=== PATIENT | male | born 1990 | race Caucasian/White ===

== ENCOUNTER 2024-05-09 11:45 | Emergency (ER) | payer OTHER, SELFPAY ==
[2024-05-09 11:56] VITALS: BP 107/74; PULSE 106; TEMP 37.1; O2SAT 91; BMI 19.5
--- NOTE | 2024-05-09 12:08 | CRLHL7_ITS ---
For Patients: As a result of the 21st Century Cures Act, medical imaging exams and procedure reports are released immediately into your electronic medical record. You may view this report before your referring provider. If you have questions, please contact your health care provider. INDICATION: Right flank pain TECHNIQUE: CT abdomen and pelvis without contrast. COMPARISON: 01/21/[address] FINDINGS: Motion artifact on the exam. A portion of the mid abdomen was reimaged. Motion remains in the upper abdomen and pelvis images. Examination has reduced sensitivity due to artifact and lack of IV contrast. Lower chest: Tiny right pleural effusion. Micronodular infiltrates in both posterior lungs. Findings compatible with pneumonia, possibly aspiration. Similar pattern was present in 2019. Liver: Grossly normal. Gallbladder and bile ducts: Not visible. Pancreas: Unremarkable. No mass or inflammation. Spleen: Grossly normal. Adrenal glands: Normal in size. No nodules. Kidneys: Tiny nonobstructing right kidney stone. No hydronephrosis. GI tract: Gaseous distention of the colon. Vasculature: Abdominal aorta is normal caliber. Lymph nodes: No visible adenopathy. Abdominal wall/Omentum/Peritoneum: No free air or free fluid identified. Stimulator pack in the anterior right abdominal wall with leads heading cephalad. Pelvis: Unremarkable. No pelvic masses. Bones: Unremarkable for age. IMPRESSION: 1. Exam limited by motion and lack of IV contrast. 2. Micronodular infiltrates in the lower lobes and trace right pleural effusion compatible with pneumonia. Consider aspiration. 3. Nonobstructing right nephrolithiasis. Please note that all CT scans at this facility use dose modulation, iterative reconstruction, and/or weight-based dosing when appropriate to reduce radiation dose to as low as reasonably achievable. Dictated by Steve Morales MD @ 05/09/2024 1:06:55 PM (Electronically Signed)
--- NOTE | 2024-05-09 12:10 | ED.GENADULT ---
HPI - General Adult General Chief complaint: Flank Pain Stated complaint: shooting back pain, kidney infection Time Seen by Provider: 05/09/24 11:47 History of Present Illness HPI narrative: Patient is a 34-year-old gentleman with cerebral palsy and seizure disorder who presents with right-sided flank pain. Pain began this morning. He has dark urine. Wears a condom catheter. He articulates through his parents and a computer. He has had no fevers no chills no nausea no vomiting no weakness. He is in a wheelchair. He states the pain extends from the right flank in to the low back. No history of any kidney stones. No history of any urinary pain. Related Data Home Medications ?Medication ?Instructions ?Recorded ?Confirmed acetaminophen 650 mg rectal mg WI 05/09/24 suppository bisacodyl 10 mg rectal suppository 0 mg WI 05/09/24 diazepam 12.5 mg-15 mg-17.5 mg-20 12.5 mg WI 05/09/24 mg rectal kit ergocalciferol (vitamin D2) 200 PO 05/09/24 mcg/mL (8,000 unit/mL) oral drops (Calcidol) glycopyrrolate 1 mg tablet mg PO 05/09/24 lamotrigine 100 mg disintegrating mg PO 05/09/24 tablet nystatin 100,000 unit/gram topical topical DAILY 05/09/24 powder (Nystop) Previous Rx's ?Medication ?Instructions ?Recorded sulfamethoxazole 200 10 ml PO QID #200 mL 05/09/24 mg-trimethoprim 40 mg/5 mL oral suspension sulfamethoxazole 200 10 ml PO QID 5 days #200 mL 05/09/24 mg-trimethoprim 40 mg/5 mL oral suspension tamsulosin 0.4 mg capsule (Flomax) 0.4 mg PO DAILY #10 caps 05/09/24 tamsulosin 0.4 mg capsule (Flomax) 0.4 mg PO DAILY #10 caps 05/09/24 Allergies Allergy/AdvReac Type Severity Reaction Status Date / Time No Known Drug Allergies Allergy Verified 05/09/24 11:54 Review of Systems Status of ROS: Reports: 10 or more systems reviewed and unremarkable except as noted in History and below [facility] Medical History Seizure disorder ?G40.909 - Epilepsy, unspecified, not intractable, without status epilepticus (ICD-10) Cerebral palsy ?G80.9 - Cerebral palsy, unspecified (ICD-10) Exam Narrative: Exam Narrative: EXAM GENERAL: Patient appears comfortable and well. Seated in wheelchair. EYES: No scleral icterus. LYMPH: No supraclavicular or cervical lymphadenopathy. SKIN: Visible skin seen during exam normal or with benign process only. EXT: No dependent lower extremity pedal edema. HEART: Regular rate and rhythm with no murmurs, rubs, or gallops. LUNGS: Clear to auscultation bilaterally with no crackles or wheezes. ABD: Soft, non tender, non distended. PSYCH: Good eye contact, speech is not pressured. Const: Vital Signs, click to edit/add: Vital Signs - 24 hr 05/09/24 11:56 Temperature 98.8 F Pulse Rate [Pulse Oximeter] 106 H Blood Pressure [Ri ght Upper Arm] 107/74 Pulse Oximetry 91 Oxygen Delivery Me thod Room Air Course Course ED Course: CBC basic metabolic panel UA CT abdomen pelvis pending. Vital Signs Vital signs: Initial Vital Signs Temperature 98.8 F 05/09/24 11:56 Temperature Source Temporal Artery Scan 05/09/24 11:56 Pulse Rate 106 H 05/09/24 11:56 Blood Pressure 107/74 05/09/24 11:56 Blood Pressure Mean 85 05/09/24 11:56 Blood Pressure Position Sitting 05/09/24 11:56 Pulse Oximetry 91 05/09/24 11:56 Oxygen Delivery Method Room Air 05/09/24 11:56 Vital Signs Temperature 98.8 F 05/09/24 11:56 Pulse Rate 106 H 05/09/24 11:56 Blood Pressure 107/74 05/09/24 11:56 Pulse Oximetry 91 05/09/24 11:56 Oxygen Delivery Method Room Air 05/09/24 11:56 Temperature 98.8 F 05/09/24 11:56 Pulse Rate 106 H 05/09/24 11:56 Blood Pressure 107/74 05/09/24 11:56 Pulse Oximetry 91 05/09/24 11:56 Oxygen Delivery Method Room Air 05/09/24 11:56 Medical Decision Making MDM Narrative Medical decision making narrative: Patient is a 34-year-old gentleman with cerebral palsy who presents with right flank pain. He wears a condom catheter. White blood cell count and laboratory studies are reassuring but he does have evidence of UTI. He also has right-sided kidney stone which currently is not obstructing. I did send the urine for culture and recommended plenty of rest plenty fluids Bactrim for the next 5 days see is allergic to quinolones. I also place him on Flomax and recommended primary care follow-up in 5 days. Lab Data Labs: Lab Results 05/09/24 05/09/24 Range/Units 12:37 12:45 WBC 8.33 (4.50-11.00) K/uL RBC 5.05 (4.30-5.90) m/uL Hgb 15.1 (13.5-17.5) gm/dL Hct 45.2 (37.0-53.0) % MCV 90 (80-100) fL MCH 30 (26-34) pg MCHC 33 (32-36) gm/dL RDW Coeff of Bobo 12.0 (11.5-15.5) % Plt Count 264 (140-440) K/uL Neut % (Auto) 72.7 H (42.0-72.0) % Lymph % (Auto) 15.5 L (20-44) % [place] % (Auto) 7.0 (0.0-11.0) % Eos % (Auto) 4.1 (0.0-7.0) % Baso % (Auto) 0.7 (0.0-3.0) % Neut # (Auto) 6.10 (1.7-7.0) K/uL Lymph # (Auto) 1.30 (0.90-2.90) K/uL [place] # (Auto) 0.60 (0.00-0.90) K/UL Eos # (Auto) 0.34 (0.00-0.50) K/uL Baso # (Auto) 0.06 (0.00-0.30) K/uL Abs Immat Gran (auto) 0.00 (0.00-0.30) K/uL Imm/Tot Granulo (auto) 0.0 % Sodium 137 (135-149) mmol/L Potassium 4.6 (3.6-5.1) mmol/L Chloride 102 (96-114) mmol/L Carbon Dioxide 26 (20-32) mmol/L Anion Gap 9 (7-15) mEq/L BUN 12 (5-24) mg/dL Creatinine 0.7 (0.5-1.5) mg/dL Estimated Creat Clear 106.92 Estimated GFR 126 ml/min Glucose 97 (60-115) mg/dL Calcium 9.7 (8.4-10.6) mg/dL Urine Color Yellow (Yellow) Urine Appearance Cloudy A (Clear) Urine pH 7.0 (5.0-8.5) Ur Specific [place] 1.020 (1.000-1.030) Urine Protein Negative (Negative) Urine Glucose (UA) Negative (Negative) Urine Ketones Negative (Negative) Urine Blood Negative (Negative) Urine Nitrite Positive A (Negative) Urine Bilirubin Negative (Negative) Urine Urobilinogen 0.2 (0.2-1.0) Ur Leukocyte Esterase 1+ A (Negative) Urine RBC 0-2 (0-2) Urine WBC 5-10 A (0-5) Urine WBC Clumps Few A (None) Ur Squamous Epith Cells Few (None-Few) Amorphous Sediment Many A (None) Urine Bacteria Many A (None) Discharge Plan Discharge Clinical Impression: Acute UTI, Kidney stone Patient Disposition: Home w/ Parent or Adult Condition: Stable Instructions: Kidney Stones (ED), Urinary Tract Infection in Men (ED) Additional Instructions: Flomax as directed Bactrim as directed Increase fluids Continue current medications Follow-up with your doctor this week. Activity Level: No Restrictions Discharge Diet: Regular Prescriptions: New sulfamethoxazole-trimethoprim 200-40 mg/5 mL suspension 10 ml PO QID Qty: 200 0RF tamsulosin [Flomax] 0.4 mg capsule 0.4 mg PO DAILY Qty: 10 3RF sulfamethoxazole-trimethoprim 200-40 mg/5 mL suspension 10 ml PO QID 5 Days Qty: 200 0RF tamsulosin [Flomax] 0.4 mg capsule 0.4 mg PO DAILY Qty: 10 0RF No Action glycopyrrolate 1 mg tablet PO acetaminophen 650 mg suppository WI bisacodyl 10 mg suppository 0 mg WI nystatin [Nystop] 100,000 unit/gram powder topical DAILY ergocalciferol (vitamin D2) [Calcidol] 200 mcg/mL (8,000 unit/mL) drops PO diazepam 12.5-15-17.5-20 mg kit 12.5 mg WI lamotrigine 100 mg tablet,disintegrating PO Follow Up/Referrals: Oral Alexandra MD [Primary Care Provider] - Stand Alone Forms: [employer] Info Instructions
[2024-05-09 12:50] LABS: Appearance Urine Cloudy (Clear); Bilirubin Urine Negative (Negative); Blood Urine Negative (Negative); Color Urine Yellow (Yellow); Glucose Urine Negative (Negative); Ketones Urine Negative (Negative); Leukocyte Esterase Urine 1+ (Negative); Nitrite Urine Positive (Negative); Protein Urine Negative (Negative); Urobilinogen Urine 0.2 (0.2-1.0)
[2024-05-09 12:56] LABS: Basophils Absolute Auto 0.06 K/uL (0.00-0.30); Basophils Percent Auto 0.7 % (0.0-3.0); Eosinophils Absolute Auto 0.34 K/uL (0.00-0.50); Eosinophils Percent Auto 4.1 % (0.0-7.0); Hematocrit 45.2 % (37.0-53.0); Hemoglobin* 15.1 gm/dL (13.5-17.5); Lymphocytes Percent Auto 15.5 % (20-44); Mean Corpuscular HGB Conc 33 gm/dL (32-36); Mean Corpuscular Hemoglobin 30 pg (26-34); Mean Corpuscular Volume 90 fL (80-100); Neutrophils Percent Auto 72.7 % (42.0-72.0); Platelet Count* 264 K/uL (140-440); Red Blood Count 5.05 m/uL (4.30-5.90); Slide Review Reflex No; White Blood Count* 8.33 K/uL (4.50-11.00)
[2024-05-09 12:58] LABS: Chloride* 102 mmol/L (96-114); Sodium* 137 mmol/L (135-149)
[2024-05-09 12:59] LABS: Potassium* 4.6 mmol/L (3.6-5.1)
[2024-05-09 13:01] LABS: Creatinine* 0.7 mg/dL (0.5-1.5); Est. Creatinine Clearance* 106.92; Estimated Glomerular Filt Rate 126 ml/min
[2024-05-09 13:02] LABS: Anion Gap 9 mEq/L (7-15); Blood Urea Nitrogen* 12 mg/dL (5-24); Calcium* 9.7 mg/dL (8.4-10.6); Carbon Dioxide* 26 mmol/L (20-32); Glucose* 97 mg/dL (60-115)
[2024-05-09 13:19] LABS: Amorphous Sediment Urine Many; Bacteria Urine Many; RBC Urine 0-2 (0-2); Squamous Epithelial Cell Urine Few (None-Few); WBC Clumps Urine Few
== END 2024-05-09 13:37 | disposition home or self-care (01) ==
PROVIDERS: Emergency Provider Internal Medicine; PCP Family Medicine
DX: N39.0 Urinary tract infection, site not specified (principal); N20.0 Calculus of kidney
CPT/HCPCS: 36415; 74176; 80048; 81001; 81003; 85025; 87086; 87186; 99283; 99284

== ENCOUNTER 2024-05-18 00:19 | Emergency (ER) | payer OTHER, SELFPAY ==
--- OUTSIDE RECORDS SUMMARY | 2024-05-18 00:21 | XMS_ITS | Clinical Summary ---
Author Organization [facility] Address [address] [place] [address] Care Team Providers Care Bay Stocker Name Role Phone Oral Alexandra Primary Care Physician [phone] Encounter 05/03/22 - 05/03/[address] [address] Discharge Disposition: Home or Self Care Attending Physician: Alexander Andre MD Admitting Physician: Alexander Andre MD Referring Physician: Alexander Andre MD Allergies, Adverse Reactions, Alerts No Known Allergies Discharge Medications albuterol (albuterol 2.5 mg/ 3 mL (0.083%) inhalation solution) Status: Ordered Start Date: 11/24/18 3 Milliliters Nebulized Inhalation every 4 hours as needed as needed for wheezing. bisacodyl (bisacodyl 10 mg r ectal suppository) Status: Ordered Start Date: 11/22/16 1 supp Rectal 6 days/week. diazePAM (Diastat AcuDial 20 mg rectal kit) Status: Ordered Start Date: 11/22/16 12.5 Milligrams Per rectum As Directed as needed as needed for seizure activity> 3 min. docusate (Enemeez Mini 283 m g rectal enema) Status: Ordered Start Date: 11/22/16 1 Each Per rectum Sat/Sat. Given when bisacodyl is not given ,use intermittently in place of the bisacodyl suppository prn. ergocalciferol (ergocalcifer ol 8000 intl units/mL oral solution) Status: Ordered Start Date: 11/22/16 4 mL Oral twice a month on Saturday. glycopyrrolate (glycopyrrola te 1 mg oral tablet) Status: Ordered Start Date: 11/22/16 1/2 tab Oral every day. lamoTRIgine (LaMICtal ODT 10 0 mg oral tablet, disintegrating) Status: Ordered Start Date: 11/22/16 3 tabs (300mg) AM and 2.5 tabs (250mg) HS. polyethylene glycol 3350 (po lyethylene glycol 3350 oral powder for reconstitution) Status: Ordered Start Date: 11/22/16 17 Gram Oral every day as needed constipation. dissolve in water before taking. Problem List Condition Confirmation Course Effective Dates Status H ealth Status Informant At high risk for falls 1 Confirmed Active Mixed cerebral palsy Confirmed Active Constipation Confirmed Active patient pureed diet only tolerated thin liquids Confirmed Active patient Communication device Confirmed Active p atient Nonverbal Confirmed Active patient Cognitive age appropriate Confirmed Active patient IMPLANTED DEEP BRAIN STIMULATOR Confirmed Active patient Seizure disorder 2 Confirmed Active pat ient condom cath in place Confirmed Active p atient Warts on hand Confirmed Active patient Wheelchair dependence power wheelchair Confirmed Active patient 1Added via Discern Expert [email or web address]_PROBLEM Rule. 2MEG. DBS. Procedures Procedure Date Related Diagnosis Body Site Status Dental 1 11/24/18 Completed 1auto-populated from documented surgical case Immunizations Given and Recorded Vaccine Date Status Refusal Reason influenza virus vaccine, inactivated 04/05/22 Give n influenza virus vaccine, inactivated 03/05/21 Kirill rded influenza virus vaccine, inactivated 03/07/20 Kirill rded influenza virus vaccine, inactivated 04/08/19 Kirill rded influenza virus vaccine, inactivated 02/10/18 Kirill rded influenza virus vaccine, inactivated 02/08/17 Kirill rded influenza virus vaccine, inactivated 06/26/16 Kirill rded influenza virus vaccine, inactivated 03/30/15 Kirill rded influenza virus vaccine, inactivated 02/12/13 Kirill rded influenza virus vaccine, inactivated 02/14/12 Kirill rded influenza virus vaccine, inactivated 02/16/10 Kirill rded influenza virus vaccine, inactivated 04/21/08 Kirill rded influenza virus vaccine, inactivated 04/15/07 Kirill rded influenza virus vaccine, inactivated 04/03/06 Kirill rded influenza virus vaccine, inactivated 03/13/04 Kirill rded influenza virus vaccine, inactivated 04/13/03 Kirill rded influenza virus vaccine, inactivated 04/29/02 Kirill rded SARS-CoV-2 mRNA (tozinameran) vaccine 04/07/21 Rec orded SARS-CoV-2 (COVID-19) Ad26 vaccine, kirill 08/06/20 Recorded pneumococcal 23-polyvalent vaccine 07/16/19 Record ed hepatitis A adult vaccine 07/16/19 Recorded hepatitis A adult vaccine 05/26/18 Recorded pneumococcal 13-valent conjugate vaccine 05/26/18 Recorded tetanus/diphth/pertuss (Tdap) adult/adol 02/21/17 Recorded tetanus-diphth toxoids (Td) adult/adol 03/30/15 Re corded tetanus-diphth toxoids (Td) adult/adol 12/22/04 Re corded varicella virus vaccine 04/15/07 Recorded measles/mumps/rubella/varicella vaccine 12/22/04 R ecorded Vital Signs Most recent to oldest [Reference Range]: 1 2 3 Temperature (Route Not Specified) [36.5-38 Deg C] 36.2 Deg C *LOW* (05/03/22 9:17 AM) 98 Deg C *HI* (05/03/22 9:17 AM) Heart Rate Monitored [50-90 bpm] 87 bpm (05/03/22 9:17 AM) 100 bpm *HI* (05/03/22 9:17 AM) 101 bpm *HI* (05/03/22 9:17 AM) Systolic Blood Pressure [100-140 mmHg] 123 mmHg (05/03/22 9:17 AM) 121 mmHg (05/03/22 9:17 AM) Diastolic Blood Pressure [60-90 mmHg] 75 mmHg (05/03/22 9:17 AM) 72 mmHg (05/03/22 9:17 AM) Respiratory Rate [10-24 br/min] 18 br/min (05/03/22 9:17 AM) SpO2 [92-100 %] 98 % (05/03/22 9:17 AM) 100 % (05/03/22 9:17 AM) 98 % (05/03/22 9:17 AM) Pain Present No actual or suspect ed pain (05/03/22 9:15 AM) Able to self report Yes (05/03/22 9:15 AM) able to use numeric rating scale No (05/03/22 9:15 AM) Social History Social History Type Response Alcohol Never used Smoking Status Never smoker entered on: 04/05/22 Sex Treatment Plan Future Appointments Appointment Date:05/29/2022 09:30:00 AM Scheduled Provider:DEMETRICE Robbins/Sherry Location:[facility] Appointment Type:OT - Virtual Video Visit Evaluation Appointment Date:12/13/2022 02:00:00 PM Scheduled Provider: Location:[facility] Appointment Type:Complex Movement Disorders - Standard Patient Care team information Personnel Name: Oral Alexandra MD Address: Address: [address]
--- OUTSIDE RECORDS SUMMARY | 2024-05-18 00:21 | XMS_ITS | Clinical Summary ---
Author Organization [facility] Address [address] [place] [address] Care Team Providers Care Light Rail Transit Operator Name Role Phone AlexandraOral Sherry Primary Care Physician Encounter 02/19/19 - 02/19/19 [facility] [address] [place] [address] Encounter Diagnosis Other cerebral palsy(Discharge Diagnosis) - 02/19/19 Presence of other specified functional implants(Discharge Diagnosis) - 02/19/19 Mixed cerebral palsy(Discharge Diagnosis) - 02/19/19 S/P deep brain stimulator placement(Discharge Diagnosis) - 02/19/19 Discharge Disposition: Home or Self Care Attending Physician: Figueroa Stevenson MD Admitting Physician: Figueroa Stevenson MD Referring Physician: Figueroa Stevenson MD Allergies, Adverse Reactions, Alerts No Known Allergies Discharge Medications albuterol (albuterol 2.5 mg/ 3 mL (0.083%) inhalation solution) 3 Milliliters Nebulized Inhalation every 4 hours as needed as needed for wheezing. bisacodyl (bisacodyl 10 mg r ectal suppository) 1 Suppositories Per rectum. every Sat/ Mon///Sat, Given in the afternoon. diazePAM (Diastat AcuDial 20 mg rectal kit) 12.5 Milligrams Per rectum As Directed as needed as needed for seizure activity> 3 min. docusate (Enemeez Mini 283 m g rectal enema) 1 Each Per rectum Sat/Sat. Given when bisacodyl is not given ,use intermittently in place of the bisacodyl suppository prn. ergocalciferol (ergocalcifer ol 8000 intl units/mL oral solution) 4 mL Oral twice a month on Saturday. glycopyrrolate (glycopyrrola te 1 mg oral tablet) 1/2 tab Oral every day. lamoTRIgine (LaMICtal ODT 10 0 mg oral tablet, disintegrating) 3 tabs (300mg) AM and 2.5 tabs (250mg) HS. polyethylene glycol 3350 (po lyethylene glycol 3350 oral powder for reconstitution) 17 Gram Oral every day as needed constipation. dissolve in water before taking. Problem List Condition Effective Dates Status Health Status Inform ant At high risk for falls(Confirmed) 1 Active Mixed cerebral palsy(Confirmed) Active Constipation(Confirmed) Active p atient pureed diet only tolerated t hin liquids(Confirmed) Active patient Communication device(Confirmed) Active patient Nonverbal(Confirmed) Active milagro ent Cognitive age appropriate(Confirmed) Active patient IMPLANTED DEEP BRAIN STIMULATOR(Confirmed) Active patient Seizure disorder(Confirmed) 2 Active patient condom cath in place(Confirmed) Active patient Warts on hand(Confirmed) Active patient Wheelchair dependence power wheelchair(Confirmed) Active patient 1Added via Discern Expert ADD_HIGHRISKFALL_PROBLEM Rule. 2MEG. DBS. Hospital Discharge Diagnosis Mixed cerebral palsy(Discharge Diagnosis) - 02/19/19 Other cerebral palsy (Discharge Diagnosis) - 02/19/19 Presence of other specified functional implants (Discharge Diagnosis) - 02/19/19 S/P deep brain stimulator placement(Discharge Diagnosis) - 02/19/19 (This Visit) Procedures Procedure Date Related Diagnosis Body Site Status Dental 1 11/24/18 Completed 1auto-populated from documented surgical case Vital Signs Most recent to oldest [Reference Range]: 1 Temperature Temporal Artery [36.5-38 Deg C] 37.0 Deg C (02/19/19 2:06 PM) Peripheral Pulse Rate [50-90 bpm] 100 bp m *HI* (02/19/19 2:06 PM) Blood Pressure [100-140/60-90 mmHg] 109/ 60mmHg (02/19/19 2:06 PM) Pain Present No actual or suspect ed pain (02/19/19 2:00 PM) Social History Social History Type Response Alcohol Never used Smoking Status Never smoker entered on: 02/19/19 Sex
--- OUTSIDE RECORDS SUMMARY | 2024-05-18 00:21 | XMS_ITS | Clinical Summary ---
Author Organization [facility] Address [address] [place] [address] Care Team Providers Care Dance Instructor Name Role Phone Nasrin Oral Powell Primary Care Physician [phone] Encounter 09/06/21 - 09/06/[address] [address] Encounter Diagnosis Dystonia(Discharge Diagnosis) - 09/06/21 Cerebral palsy with gross motor function classification system level IV (Discharge Diagnosis) - 09/06/21 Discharge Disposition: Home or Self Care Attending Physician: Unknown Provider, Admitting Physician: Unknown Provider, MD Allergies, Adverse Reactions, Alerts No Known [...] ADD_HIGHRISKFALL_PROBLEM Rule. 2MEG. DBS. Hospital Discharge Diagnosis Cerebral palsy with gross motor function classification system level IV (Discharge Diagnosis) - 09/06/21 Dystonia(Discharge Diagnosis) - 09/06/21 (This Visit) Procedures Procedure Date Related Diagnosis Body Site Status Dental 1 11/24/18 Completed 1auto-populated from documented surgical case Immunizations Given and Recorded Vaccine Date Status Refusal Reason SARS-CoV-2 mRNA (tonorbertoeran) vaccine 04/07/21 Rec orded influenza virus vaccine, inactivated 03/05/21 Kirill rded [...] virus vaccine, inactivated 04/29/02 Kirill rded SARS-CoV-2 (COVID-19) Ad26 vaccine, kirill 08/06/20 Recorded [...] 1 Temperature Temporal Artery [36.5-38 Deg C] 37.4 Deg C (09/06/21 9:17 AM) Peripheral Pulse Rate [50-90 bpm] 102 bp m *HI* (09/06/21 9:17 AM) Blood Pressure [100-140/60-90 mmHg] 107/ 68mmHg (09/06/21 9:17 AM) Weight Measured 49 kg (09/06/21 9:17 AM) Weight Dosing 49 kg (09/06/21 9:17 AM) Weight - Devices Included Shoes, Clothing (09/06/21 9:17 AM) Pain Present No actual or suspect ed pain (09/06/21 12:05 PM) Able to self report No (09/06/21 12:05 PM) able to use numeric rating scale No (09/06/21 12:05 PM) Social History Social History Type Response Alcohol Never used Smoking Status Never smoker entered on: 09/06/21 Sex
--- OUTSIDE RECORDS SUMMARY | 2024-05-18 00:21 | XMS_ITS | Clinical Summary ---
Author Organization [facility] Address [address] [place] [address] Care Team Providers Care Bit Sharpener Operator Name Role Phone Oral Alexandra Sherry Primary Care Physician Encounter Date(s): 07/02/23 - 08/08/[address] [address] Encounter Diagnosis Other cerebral palsy(Final) - Cerebral palsy, unspecified(Final) - Specific developmental disorder of motor function(Final) - Cerebral palsy with gross motor function classification system level IV (Discharge Diagnosis) - 07/02/23 Discharge Disposition: Home or Self Care Attending [...] Start Date: 11/22/16 1 Each Per rectum Wed/Sat. Given when bisacodyl is not given ,use [...] needed constipation. dissolve in water before taking. tiZANidine (tiZANidine 4 mg oral capsule) Status: Ordered Start Date: 06/26/23 1 Capsules Oral every 8 hours as needed spasms, mild. Refills: 0. Ordering provider: Alexander Andre MD [id number] [place] [phone] Problem List Condition Confirmation Course Effective Dates [...] classification system level IV (Discharge Diagnosis) - 07/02/23 (This Visit) Procedures Procedure Date Related Diagnosis Body Site Status Dental 1 11/24/18 Completed 1auto-populated from documented surgical case Immunizations Given and Recorded Vaccine Date Status Refusal Reason influenza virus vaccine, inactivated 03/04/23 Kirill rded influenza virus vaccine, inactivated 04/05/22 Give n [...] recent to oldest [Reference Range]: 1 2 Height/Length Estimated 160 cm (07/25/23 11:43 AM) Weight Estimated 50 kg (07/25/23 11:43 AM) Pain Present No actual or suspect ed pain (08/08/23 3:09 PM) No actual or suspected pain (07/02/23 12:58 PM) Able to self report Yes (08/08/23 3:09 PM) Yes (07/02/23 12:58 PM) able to use numeric rating scale Yes (08/08/23 3:09 PM) Yes (07/02/23 12:58 PM) Social History Social History Type Response Tobacco Never (less than 100 in lifetime) Sex Treatment Plan Future Appointments Appointment Date:10/09/2023 08:00:00 AM Scheduled Provider: Location:[facility] Main OR Appointment Type:Surgery Patient Care team information Personnel Name: Oral Alexandra MD Address: Address: [address] [address]
--- OUTSIDE RECORDS SUMMARY | 2024-05-18 00:21 | XMS_ITS | Clinical Summary ---
Author Organization [facility] Address [address] [place] [address] Care Team Providers Care Weed Control Inspector Name Role Phone Oral Alexandra Sherry Primary Care Physician Encounter 04/06/21 - 04/06/[address] [address] Encounter Diagnosis Mixed cerebral palsy(Discharge Diagnosis) - 04/06/21 S/P deep brain stimulator placement(Discharge Diagnosis) - 04/06/21 Discharge Disposition: Home or Self Care Attending [...] Discharge Diagnosis Mixed cerebral palsy(Discharge Diagnosis) - 04/06/21 S/P deep brain stimulator placement(Discharge Diagnosis) - 04/06/21 (This Visit) Procedures Procedure Date Related Diagnosis Body Site Status Dental 1 11/24/18 Completed 1auto-populated from documented surgical case Immunizations Given and Recorded Vaccine Date Status Refusal Reason influenza virus vaccine, inactivated 03/07/20 Kirill rded [...] influenza virus vaccine, inactivated 04/29/02 Kirill rded pneumococcal 23-polyvalent vaccine 07/16/19 Record ed hepatitis A adult vaccine 07/16/19 Recorded hepatitis A adult vaccine 05/26/18 Recorded pneumococcal 13-valent conjugate vaccine 05/26/18 Recorded tetanus/diphth/pertuss (Tdap) adult/adol 02/21/17 Recorded tetanus-diphth toxoids (Td) adult/adol 03/30/15 Re corded tetanus-diphth toxoids (Td) adult/adol 12/22/04 Re corded varicella virus vaccine 04/15/07 Recorded measles/mumps/rubella/varicella vaccine 12/22/04 R ecorded Vital Signs Most recent to oldest [Reference Range]: 1 Pain Present No actual or suspect ed pain (04/06/21 9:11 AM) Social History Social History Type Response Alcohol Never used Smoking Status Never smoker entered on: 04/06/21 Sex
--- OUTSIDE RECORDS SUMMARY | 2024-05-18 00:21 | XMS_ITS | Clinical Summary ---
Author Organization [facility] Address [address] [place] [address] Care Team Providers Care Chief Deputy Name Role Phone Oral Alexandra Primary Care Physician Encounter 11/24/18 - 11/24/[address] [phone] Discharge Disposition: Home or Self Care Attending Physician: Alexandra Petersen DDS Admitting Physician: Alexandra Petersen DDS Referring Physician: Alexandra Petersen DDS Allergies, Adverse Reactions, Alerts No Known Allergies Discharge Medications albuterol (albuterol 2.5 mg/ 3 mL (0.083%) inhalation solution) 3 Milliliters Nebulized Inhalation every 4 hours as needed as needed for wheezing. bisacodyl (bisacodyl 10 mg r ectal suppository) 1 Suppositories Per rectum. every Sat/ Mon/Tu/Th/Fri, Given in the afternoon. diazePAM (Diastat AcuDial [...] oldest [Reference Range]: 1 2 3 Temperature Temporal Artery [36.5-38 Deg C] 36.6 Deg C (11/24/18 2:00 PM) 37.5 Deg C (11/24/18 1:35 PM) 37.7 Deg C (11/24/18 1:22 PM) Heart Rate Monitored [50-90 bpm] 98 bpm *HI* (11/24/18 2:04 PM) 100 bpm *HI* (11/24/18 1:35 PM) 110 bpm *HI* (11/24/18 1:22 PM) Blood Pressure [100-140/60-90 mmHg] 117/69mmHg (11/24/18 2:04 PM) 134/71mmHg (11/24/18 1:35 PM) 144/86mmHg *HI* (11/24/18 1:22 PM) Mean Arterial Pressure, Cuff [65-140 mmHg] 99 mmHg (11/24/18 1:35 PM) 106 mmHg (11/24/18 1:22 PM) Mean Arterial Pressure, Cuff 91 (11/24/18 1:15 PM) Respiratory Rate [10-24 br/min] 22 br/min (11/24/18 2:04 PM) 20 br/min (11/24/18 1:35 PM) 24 br/min (11/24/18 1:22 PM) Weight Dosing 46.4 kg (11/24/18 11:05 AM) 46.4 kg (11/24/18 10:32 AM) Oxygen Therapy Room air (11/24/18 2:04 PM) Room air (11/24/18 1:35 PM) Blow-By (11/24/18 1:22 PM) SpO2 [92-100 %] 94 % (11/24/18 2:04 PM) 96 % (11/24/18 1:35 PM) 96 % (11/24/18 1:22 PM) FACES Pain Score 0 (11/24/18 1:35 PM) 0 (11/24/18 1:22 PM) Primary Pain Alleviating Factors None (11/24/18 1:35 PM) None (11/24/18 1:22 PM) Parent/Caregiver Present (11/24/18 11:00 AM) Social History Social History Type Response Alcohol Never used Smoking Status Never smoker entered on: 11/24/18 Sex Functional Status 11/24/18 Outside Facility Information 11/20: galindo d to REQ. H&P, per NETTIE diallo/Kaylie IRAM will fax the H&P stat by 11/20 or 11/21, anya
--- OUTSIDE RECORDS SUMMARY | 2024-05-18 00:21 | XMS_ITS | Clinical Summary ---
Author Organization [facility] Address [address] [place] [address] Care Team Providers Care Interventional Physiatrist Name Role Phone Oral Alexandra Primary Care Physician Encounter 08/11/20 - 08/11/20 [facility] [address] [place] [address] Encounter Diagnosis Mixed cerebral palsy(Discharge Diagnosis) - 08/11/20 Dysphagia(Discharge Diagnosis) - 08/11/20 Discharge Disposition: Home or Self Care Attending Physician: Alexander Andre MD Admitting Physician: Alexander Andre MD Referring Physician: Dionne Rose MD Allergies, Adverse Reactions, Alerts No Known [...] ADD_HIGHRISKFALL_PROBLEM Rule. 2MEG. DBS. Hospital Discharge Diagnosis Dysphagia(Discharge Diagnosis) - 08/11/20 Mixed cerebral palsy(Discharge Diagnosis) - 08/11/20 (This Visit) Procedures Procedure Date Related Diagnosis [...] influenza virus vaccine, inactivated 04/29/02 Kirill rded hepatitis A adult vaccine 07/16/19 Recorded hepatitis A adult vaccine 05/26/18 Recorded pneumococcal 23-polyvalent vaccine 07/16/19 Record ed pneumococcal 13-valent conjugate vaccine 05/26/18 Recorded tetanus/diphth/pertuss (Tdap) adult/adol 02/21/17 Recorded tetanus-diphth toxoids (Td) adult/adol 03/30/15 Re corded tetanus-diphth toxoids (Td) adult/adol 12/22/04 Re corded varicella virus vaccine 04/15/07 Recorded measles/mumps/rubella/varicella vaccine 12/22/04 R ecorded Vital Signs Most recent to oldest [Reference Range]: 1 Temperature Temporal Artery [36.5-38 Deg C] 37.2 Deg C (08/11/20 9:08 AM) Peripheral Pulse Rate [50-90 bpm] 112 bp m *HI* (08/11/20 9:08 AM) Blood Pressure [100-140/60-90 mmHg] 136/ 86mmHg (08/11/20 9:08 AM) Weight Measured 49.7 kg (08/11/20 9:08 AM) Weight Dosing 49.7 kg (08/11/20 9:08 AM) Pain Present No actual or suspect ed pain (08/11/20 9:43 AM) Able to self report Yes (08/11/20 9:43 AM) able to use numeric rating scale Yes (08/11/20 9:43 AM) Social History Social History Type Response Alcohol Never used Smoking Status Never smoker entered on: 08/11/20 Sex
--- OUTSIDE RECORDS SUMMARY | 2024-05-18 00:21 | XMS_ITS | Clinical Summary ---
Author Organization [facility] Address [address] [place] [address] Care Team Providers Care Grinding Room Supervisor Name Role Phone Oral Alexandra Sherry Primary Care Physician [phone] Encounter Date(s): 01/09/24 - 01/09/[address] [address] Encounter Diagnosis Mixed cerebral palsy(Discharge Diagnosis) - 01/09/24 S/P deep brain stimulator placement(Discharge Diagnosis) - 01/09/24 Discharge Disposition: Home or Self Care Attending [...] Refills: 0. Ordering provider: Alexander Andre MD [facility] #[id number] [place] [phone] Problem List Condition Confirmation Course Effective Dates [...] Discharge Diagnosis Mixed cerebral palsy(Discharge Diagnosis) - 01/09/24 S/P deep brain stimulator placement(Discharge Diagnosis) - 01/09/24 (This Visit) Procedures Procedure Date Related Diagnosis Body Site Status Dental 1 10/09/23 Completed Dental 2 11/24/18 Completed DBS - Deep brain stimulation 3 Completed 1auto-populated from documented surgical case 2auto-populated from documented surgical case [address] Fish Immunizations Given and Recorded Vaccine Date Status [...] Present No actual or suspect ed pain (01/09/24 1:00 PM) Social History Social History Type Response Tobacco Never (less than 100 in lifetime), Exposure to Secondhand Smoke: No. Sex Sex Representation Male (finding) Patient Care team information Personnel Name: Oral Alexandra MD Address: [address] [address]
--- OUTSIDE RECORDS SUMMARY | 2024-05-18 00:21 | XMS_ITS | Clinical Summary ---
Author Organization [facility] Address [address] [place] [address] Care Team Providers Care Rda Name Role Phone Oral Alexandra Sherry Primary Care Physician Encounter 04/05/22 - 04/05/[address] [address] Encounter Diagnosis Cerebral palsy(Discharge Diagnosis) - 04/05/22 Impaired mobility and ADLs(Discharge Diagnosis) - 04/05/22 Need for influenza vaccination(Discharge Diagnosis) - 04/05/22 Mixed cerebral palsy(Discharge Diagnosis) - 04/05/22 S/P deep brain stimulator placement(Discharge Diagnosis) - 04/05/22 Discharge Disposition: Home or Self Care Attending [...] Rule. 2MEG. DBS. Hospital Discharge Diagnosis Cerebral palsy(Discharge Diagnosis) - 04/05/22 Impaired mobility and ADLs (Discharge Diagnosis) - 04/05/22 Mixed cerebral palsy(Discharge Diagnosis) - 04/05/22 Need for influenza vaccination(Discharge Diagnosis) - 04/05/22 S/P deep brain stimulator placement(Discharge Diagnosis) - 04/05/22 (This Visit) Procedures Procedure Date Related Diagnosis [...] 1 Temperature Temporal Artery [36.5-38 Deg C] 36.4 Deg C *LOW* (04/05/22 1:00 PM) Peripheral Pulse Rate [50-90 bpm] 86 bpm (04/05/22 1:00 PM) Blood Pressure [100-140/60-90 mmHg] 92/6 2mmHg *LOW* (04/05/22 1:00 PM) SpO2 [92-100 %] 98 % (04/05/22 1:00 PM) Pain Present No actual or suspect ed pain (04/05/22 1:15 PM) Social History Social History Type Response Alcohol Never used Smoking Status Never smoker entered on: 04/05/22 Sex Treatment Plan Future Appointments Appointment Date:05/03/2022 09:00:00 AM Scheduled Provider:Alexander Andre MD Location:[facility] - Clinic Appointment Type:PM and R - Botulinum Toxin Nitrous Oxide Appointment Date:12/13/2022 02:00:00 PM Scheduled Provider: Location:[facility] [place] - Clinic Appointment Type:Complex Movement Disorders - Standard Care Team Personnel Name: Oral Alexandra MD Address: Address: [address]
--- OUTSIDE RECORDS SUMMARY | 2024-05-18 00:21 | XMS_ITS | Clinical Summary ---
Author Organization [facility] Address [address] [place] [address] Care Team Providers Care Minilab Operator Name Role Phone Oral Alexandra Primary Care Physician Encounter Date(s): 10/09/23 - 10/09/23 [facility] [address] [place] [address] Discharge Disposition: Home or Self Care Attending Physician: Martha Ziegler DDS Admitting Physician: Martha Ziegler DDS Referring Physician: Marhta Ziegler DDS Allergies, Adverse Reactions, Alerts No Known [...] Refills: 0. Ordering provider: Alexander Andre MD [facility] #[id number] [place] [phone] Problem List Condition Confirmation Course Effective Dates [...] Kirill rded influenza virus vaccine, inactivated 02/10/18 Kriill rded influenza virus vaccine, inactivated 02/08/17 Kirill [...] 3 Temperature Temporal Artery [36.5-38 Deg C] 36.7 Deg C (10/09/23 10:42 AM) 36.7 Deg C (10/09/23 10:15 AM) 36.1 Deg C *LOW* (10/09/23 10:00 AM) Heart Rate Monitored [50-90 bpm] 86 bpm (10/09/23 10:42 AM) 999 bpm *HI* (10/09/23 10:15 AM) 117 bpm *HI* (10/09/23 10:00 AM) Blood Pressure [100-140/60-90 mmHg] 107/62mmHg (10/09/23 10:42 AM) 123/92mmHg (10/09/23 10:15 AM) 132/78mmHg (10/09/23 10:00 AM) Mean Arterial Pressure, Cuff 88 (10/09/23 9:54 AM) 96 (5/15/24 9:51 AM) 77 (10/09/23 9:48 AM) Respiratory Rate [10-24 br/min] 20 br/min (10/09/23 10:42 AM) 20 br/min (10/09/23 10:15 AM) 21 br/min (10/09/23 10:00 AM) Weight Dosing 48.4 kg (10/09/23 7:11 AM) 48.4 kg (10/09/23 7:03 AM) Oxygen Therapy Room air (10/09/23 10:42 AM) Room air (10/09/23 10:15 AM) Room air (10/09/23 10:00 AM) SpO2 [92-100 %] 94 % (10/09/23 10:42 AM) 95 % (10/09/23 10:15 AM) 99 % (10/09/23 10:00 AM) Primary Pain Alleviating Factors Warm blankets (10/09/23 10:42 AM) Warm blankets (10/09/23 10:15 AM) Warm blankets (10/09/23 10:00 AM) Social History Social History Type Response Tobacco Never (less than 100 in lifetime), Exposure to Secondhand Smoke: No. Sex Patient Care team information Personnel Name: Oral Alexandra MD Address: Address: [address] [address]
--- OUTSIDE RECORDS SUMMARY | 2024-05-18 00:21 | XMS_ITS | Clinical Summary ---
Author Organization [facility] Address [address] [place] [address] Care Team Providers Care Training Consultant Name Role Phone Oral Alexandra Sherry Primary Care Physician Encounter 11/20/19 - 11/20/19 [facility] [address] [place] [address] Discharge Disposition: Home or Self Care Attending Physician: Unknown Provider, Admitting Physician: Unknown Provider, MD Referring Physician: Unknown Provider, MD Allergies, Adverse Reactions, Alerts No Known Allergies Discharge Medications albuterol (albuterol 2.5 mg/ 3 mL (0.083%) inhalation solution) Status: Ordered Start Date: 11/24/18 3 Milliliters Nebulized Inhalation every 4 hours as needed as needed for wheezing. bisacodyl (bisacodyl 10 mg r ectal suppository) Status: Ordered Start Date: 11/22/16 1 Suppositories Per rectum. every Sun/ Mon/Tues/Thurs/Fri, Given in the afternoon. diazePAM (Diastat AcuDial [...] Present No actual or suspect ed pain (11/20/19 8:30 AM) Social History Social History Type Response Alcohol Never used Smoking Status Never smoker entered on: 02/19/19 Sex
--- OUTSIDE RECORDS SUMMARY | 2024-05-18 00:22 | XMS_ITS | Clinical Summary ---
Author Organization [facility] Address [address] [place] [address] Care Team Providers Care Sample Paster Name Role Phone Oral Alexandra Primary Care Physician Encounter 11/16/21 - 11/16/[address] [address] Discharge Disposition: Home or Self Care Attending [...] Vaccine Date Status Refusal Reason SARS-CoV-2 mRNA (tosamanthanameran) vaccine 04/07/21 Rec orded influenza virus vaccine, [...] Temperature (Route Not Specified) [36.5-38 Deg C] 36.6 Deg C (11/16/21 8:59 AM) 38.1 Deg C *HI* (11/16/21 8:59 AM) 37.7 Deg C (11/16/21 8:59 AM) Heart Rate Monitored [50-90 bpm] 89 bpm (11/16/21 8:59 AM) 110 bpm *HI* (11/16/21 8:59 AM) 94 bpm *HI* (11/16/21 8:59 AM) Systolic Blood Pressure [100-140 mmHg] 108 mmHg (11/16/21 8:59 AM) 118 mmHg (11/16/21 8:59 AM) 118 mmHg (11/16/21 8:59 AM) Diastolic Blood Pressure [60-90 mmHg] 58 mmHg *LOW* (11/16/21 8:59 AM) 77 mmHg (11/16/21 8:59 AM) 77 mmHg (11/16/21 8:59 AM) Respiratory Rate [10-24 br/min] 18 br/min (11/16/21 8:59 AM) 33 br/min *HI* (11/16/21 8:59 AM) 24 br/min (11/16/21 8:59 AM) SpO2 [92-100 %] 98 % (11/16/21 8:59 AM) 100 % (11/16/21 8:59 AM) 100 % (11/16/21 8:59 AM) Pain Present No actual or suspect ed pain (11/16/21 9:04 AM) Able to self report Yes (11/16/21 9:04 AM) able to use numeric rating scale No (11/16/21 9:04 AM) Social History Social History Type Response Alcohol Never used Smoking Status Never smoker entered on: 11/16/21 Sex Treatment Plan Future Appointments Appointment Date:01/04/2022 11:15:00 AM Scheduled Provider:Alexander Andre MD Location:[facility] - Appointment Type:PM and R Virtual Care - Standard Appointment Date:02/21/2022 08:15:00 AM Scheduled Provider:Martha Ziegler DDS Location:[facility] - Clinic Appointment Type:Dentistry - Standard Care Team Personnel Name: Oral Alexandra MD Address: [address] [address]
--- OUTSIDE RECORDS SUMMARY | 2024-05-18 00:22 | XMS_ITS | Clinical Summary ---
Author Organization [facility] Address [address] [place] [phone] Care Team Providers Care Interior Design Consultant Name Role Phone Oral Alexandra Sherry Primary Care Physician Encounter Date(s): 12/13/22 - 12/13/[address] [address] Encounter Diagnosis CP (cerebral palsy)(Discharge Diagnosis) - 12/13/22 S/P deep brain stimulator placement(Discharge Diagnosis) - 12/13/22 Discharge Disposition: Home or Self Care Attending [...] ADD_HIGHRISKFALL_PROBLEM Rule. 2MEG. DBS. Hospital Discharge Diagnosis CP (cerebral palsy)(Discharge Diagnosis) - 12/13/22 S/P deep brain stimulator placement(Discharge Diagnosis) - 12/13/22 (This Visit) Procedures Procedure Date Related Diagnosis [...] Present No actual or suspect ed pain (12/13/22 1:50 PM) Social History Social History Type Response Alcohol Never used Tobacco Never (less than 100 in lifetime) Sex Treatment Plan Future Appointments Appointment Date:01/01/2024 08:00:00 AM Scheduled Provider: Location:[facility] Main OR Appointment Type:Surgery Patient Care team information Personnel Name: Oral Alexandra MD Address: Address: [address] [address]
--- OUTSIDE RECORDS SUMMARY | 2024-05-18 00:22 | XMS_ITS | Clinical Summary ---
Author Organization [facility] Address [address] [place] [address] Care Team Providers Care Transport Aircrewman Name Role Phone Oral Alexandra Sherry Primary Care Physician Encounter Date(s): 06/26/23 - 06/26/[address] [address] Encounter Diagnosis Cerebral palsy with level 4 of gross motor function classification system (GMFCS)(Discharge Diagnosis) - 06/26/23 Muscle spasm(Discharge Diagnosis) - 06/26/23 Discharge Disposition: Home or Self Care Attending [...] Refills: 0. Ordering provider: Alexander Andre MD [facility] #[id number] [place] [phone] Problem List Condition Confirmation Course Effective Dates [...] DBS. Hospital Discharge Diagnosis Cerebral palsy with level 4 of gross motor function classification system (GMFCS)(Discharge Diagnosis) - 06/26/23 Muscle spasm(Discharge Diagnosis) - 06/26/23 (This Visit) Procedures Procedure Date Related Diagnosis [...] 1 Temperature Temporal Artery [36.5-38 Deg C] 37.1 Deg C (06/26/23 10:44 AM) Heart Rate Monitored [50-90 bpm] 94 bpm *HI* (06/26/23 10:44 AM) Blood Pressure [100-140/60-90 mmHg] 110/ 59mmHg (06/26/23 10:44 AM) SpO2 [92-100 %] 99 % (06/26/23 10:44 AM) Pain Present Yes actual or [place] pain (06/26/23 10:45 AM) Able to self report Yes (06/26/23 10:45 AM) able to use numeric rating scale Yes (06/26/23 10:45 AM) Social History Social History Type Response Tobacco Never (less than 100 in lifetime) Sex Treatment Plan Future Appointments Appointment Date:07/02/2023 01:00:00 PM Scheduled Provider:BOSSMAN Robbins Location:[facility] Appointment Type:OT - Virtual Video Visit Evaluation Appointment Date:10/09/2023 08:00:00 AM Scheduled Provider: Location:[facility] Main OR Appointment Type:Surgery Patient Care team information Personnel Name: Oral Alexandra MD Address: Address: [address] [address]
--- OUTSIDE RECORDS SUMMARY | 2024-05-18 00:22 | XMS_ITS | Clinical Summary ---
Author Organization [facility] Address [address] [place] [address] Care Team Providers Care Bridal Stylist Sales Consultant Name Role Phone Oral Alexandra Sherry Primary Care Physician [phone] Encounter 01/04/22 - 01/04/[address] [address] Encounter Diagnosis Dystonia(Discharge Diagnosis) - 01/04/22 Discharge Disposition: Home or Self Care Attending Physician: Unknown Provider, MD Admitting Physician: Unknown Provider, MD Allergies, Adverse [...] ADD_HIGHRISKFALL_PROBLEM Rule. 2MEG. DBS. Hospital Discharge Diagnosis Dystonia(Discharge Diagnosis) - 01/04/22 (This Visit) Procedures Procedure Date Related Diagnosis [...] Present No actual or suspect ed pain (01/04/22 9:16 AM) Social History Social History Type Response Alcohol Never used Smoking Status Never smoker entered on: 01/04/22 Sex Treatment Plan Future Appointments Appointment Date:02/21/2022 08:15:00 AM Scheduled Provider:Martha Ziegler DDS Location:[facility] - Clinic Appointment Type:Dentistry - Standard Appointment Date:05/03/2022 09:00:00 AM Scheduled Provider:Alexander Andre MD Location:[facility] - Clinic Appointment Type:PM and R - Botulinum Toxin Nitrous Oxide Care Team Personnel Name: Oral Alexandra MD Address: [address]
--- OUTSIDE RECORDS SUMMARY | 2024-05-18 00:22 | XMS_ITS | Clinical Summary ---
Author Organization [facility] Address [address] [place] [address] Care Team Providers Care Behavioral Health Director Name Role Phone Oral Alexandra Sherry Primary Care Physician Encounter 05/29/22 - 06/12/[address] [address] Encounter Diagnosis Cerebral palsy(Discharge Diagnosis) - 05/29/22 Unspecified lack of coordination(Final) - Other cerebral palsy(Final) - Discharge Disposition: Home or Self Care Attending [...] Hospital Discharge Diagnosis Cerebral palsy(Discharge Diagnosis) - 05/29/22 (This Visit) Procedures Procedure Date Related Diagnosis [...] Most recent to oldest [Reference Range]: 1 Height/Length Estimated 160 cm (05/29/22 9:30 AM) Weight Estimated 50 kg (05/29/22 9:30 AM) Pain Present No actual or suspect ed pain (05/29/22 9:30 AM) Able to self report Yes (05/29/22 9:30 AM) Social History Social History Type Response Alcohol Never used Smoking Status Never smoker entered on: 04/05/22 Sex Treatment Plan Future Appointments Appointment Date:12/13/2022 02:00:00 PM Scheduled Provider: Location:[facility] Appointment Type:Complex Movement Disorders - Standard Patient Care team information Personnel Name: Oral Alexandra MD Address: Address: [address] [address]
--- OUTSIDE RECORDS SUMMARY | 2024-05-18 00:22 | XMS_ITS | Clinical Summary ---
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 2MEG. DBS. 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/19 (This Visit) Procedures Procedure Date Related Diagnosis [...] oldest [Reference Range]: 1 2 Height/Length Estimated 160.02 cm (06/11/19 10:53 AM) Weight Estimated 46.26 kg (06/11/19 10:53 AM) Pain Present No actual or suspect ed pain (06/11/19 10:40 AM) No actual or suspected pain (06/11/19 10:30 AM) Able to self report Yes (06/11/19 10:40 AM) able to use numeric rating scale No (06/11/19 10:40 AM) Social History Social History Type Response Alcohol Never used Smoking Status Never smoker entered on: 04/06/21 Sex Treatment Plan Future Appointments Appointment Date:09/06/2021 09:00:00 AM Scheduled Provider:Alexander Andre MD Location:[facility] - Clinic Appointment Type:PM and R - Standard
--- OUTSIDE RECORDS SUMMARY | 2024-05-18 00:23 | XMS_ITS | Clinical Summary ---
Author Organization [facility] Address [address] [place] [address] Care Team Providers Care Job Lithographer Name Role Phone Oral Alexandra Primary Care Physician [phone] Encounter 02/21/22 - 02/21/[address] [phone] [place] Discharge Disposition: Home or Self Care Attending Physician: Martha Ziegler DDS Admitting Physician: Martha Ziegler DDS Referring Physician: Martha Ziegler DDS Allergies, Adverse Reactions, Alerts No [...] mg oral tablet) Status: Ordered Start Date: 6/29/17 1/2 tab Oral every day. lamoTRIgine (LaMICtal [...] 04/15/07 Recorded measles/mumps/rubella/varicella vaccine 12/22/04 R ecorded Social History Social History Type Response Alcohol Never used Smoking Status Never smoker entered on: 01/04/22 Sex Treatment Plan Future Appointments Appointment Date:04/05/2022 01:00:00 PM Scheduled Provider: Location:[facility] - Clinic Appointment Type:Complex Movement Disorders - Standard Appointment Date:05/03/2022 09:00:00 AM Scheduled Provider:Alexander Andre MD Location:[facility] - Clinic Appointment Type:PM and R - Botulinum Toxin Nitrous Oxide Care Team Personnel Name: Oral Alexandra MD Address: Address: [address] [address]
--- OUTSIDE RECORDS SUMMARY | 2024-05-18 00:23 | XMS_ITS | Clinical Summary ---
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 bisacodyl (bisacodyl 10 mg r ectal suppository) 1 Suppositories Per rectum. Sun/ Mon/Tuse/Thurs/Fri, Given in the afternoon. diazePAM (Diastat AcuDial 20 mg rectal kit) 12.5 Milligrams Per rectum once as needed as needed for seizure activity> 3 min. docusate (Enemeez Mini 283 m g rectal enema) 1 Each Per rectum Sat/Sat. Given when bisacodyl is not given ,use intermittently in place of the bisacodyl suppository prn. ergocalciferol (ergocalcifer ol 8000 intl units/mL oral solution) 60,000 Units Oral. monthly. glycopyrrolate (glycopyrrola te 1 mg oral tablet) 0.5 Milligrams Oral every day. lamoTRIgine (LaMICtal ODT 10 [...] falls(Confirmed) 1 Active Mixed cerebral palsy(Confirmed) Active Seizure disorder(Confirmed) Active patient 1Added via Discern Expert ADD_[email or web address]_PROBLEM Rule. 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
--- OUTSIDE RECORDS SUMMARY | 2024-05-18 00:23 | XMS_ITS | Clinical Summary ---
Author Organization [facility] Address [address] [place] [address] Care Team Providers Care Professor Of Visual Arts Name Role Phone Oral Alexandra Primary Care Physician Encounter 01/21/20 - 01/21/20 [facility] [address] [place] [address] Encounter Diagnosis Dystonia(Discharge Diagnosis) - 01/21/20 Cerebral palsy(Discharge Diagnosis) - 01/21/20 Mixed cerebral palsy(Discharge Diagnosis) - 01/21/20 S/P deep brain stimulator placement(Discharge Diagnosis) - 01/21/20 Discharge Disposition: Home or Self Care Attending Physician: Oral Alexandra MD Admitting Physician: Oral Alexandra MD Referring Physician: Oral Alexandra MD Allergies, Adverse Reactions, Alerts No Known [...] Hospital Discharge Diagnosis Cerebral palsy(Discharge Diagnosis) - 01/21/20 Dystonia(Discharge Diagnosis) - 01/21/20 Mixed cerebral palsy(Discharge Diagnosis) - 01/21/20 S/P deep brain stimulator placement(Discharge Diagnosis) - 01/21/20 (This Visit) Procedures Procedure Date Related Diagnosis Body Site Status Dental 1 11/24/18 Completed 1auto-populated from documented surgical case Immunizations Given and Recorded Vaccine Date Status Refusal Reason hepatitis A adult vaccine 07/16/19 Recorded hepatitis A adult vaccine 05/26/18 Recorded pneumococcal 23-polyvalent vaccine 07/16/19 Record ed influenza virus vaccine, inactivated 04/08/19 Kirill rded [...] virus vaccine, inactivated 04/29/02 Kirill rded pneumococcal 13-valent conjugate vaccine 05/26/18 Recorded tetanus/diphth/pertuss (Tdap) adult/adol 02/21/17 Recorded tetanus-diphth toxoids (Td) adult/adol 03/30/15 Re corded tetanus-diphth toxoids (Td) adult/adol 12/22/04 Re corded varicella virus vaccine 04/15/07 Recorded measles/mumps/rubella/varicella vaccine 12/22/04 R ecorded Vital Signs Most recent to oldest [Reference Range]: 1 Temperature Temporal Artery [36.5-38 Deg C] 36.6 Deg C (01/21/20 2:06 PM) Peripheral Pulse Rate [50-90 bpm] 107 bp m *HI* (01/21/20 2:06 PM) Blood Pressure [100-140/60-90 mmHg] 117/ 67mmHg (01/21/20 2:06 PM) Pain Present No actual or suspect ed pain (01/21/20 2:15 PM) Social History Social History Type Response Alcohol Never used Smoking Status Never smoker entered on: 01/21/20 Sex
[2024-05-18 00:26] VITALS: BP 115/73; PULSE 98; RESP 16; TEMP 36.5; O2SAT 100
--- NOTE | 2024-05-18 00:41 | CRLHL7_ITS ---
For Patients: As a result of the Century Cures Act, medical imaging exams and procedure reports are released immediately into your electronic medical record. You may view this report before your referring provider. If you have questions, please contact your health care provider. Indication: Cough, aspiration Technique: Two views of the chest Comparison: Chest radiograph performed 08/02/2019 Findings/Impression: Unchanged prominence of interstitial markings with no acute cardiopulmonary process detected Dictated by Fawad Anderson MD @ 05/18/2024 1:51:00 AM (Electronically Signed)
--- NOTE | 2024-05-18 01:25 | ED_ITS ---
HPI - General Adult General Date Seen: 05/18/24 Chief complaint: Unspecified Complaint, Adult Stated complaint: threw up/ poss aspiration Time Seen by Provider: 05/18/24 00:30 Source: patient and family Mode of arrival: wheelchair Limitations: no limitations History of Present Illness HPI narrative: Patient is a very nice 34-year-old gentleman who presents here with his parents, for evaluation after he had a vomiting episode. He was sleeping in his parents heard him vomit. His dad checked on him and there was a huge spray of vomit that had gone out of him. He was complaining of some chest pain but now that has stopped. He has episodes of vomiting in the past where he need to get hospitalized, and be placed on antibiotics. He has recently been on antibiotics for UTI, but is now done that. He has had no respiratory distress since this occurred, no other complaints, otherwise is doing well. Related Data Home Medications ?Medication ?Instructions ?Recorded ?Confirmed acetaminophen 650 mg rectal mg AZ 05/09/24 suppository bisacodyl 10 mg rectal suppository 0 mg AZ 05/09/24 diazepam 12.5 mg-15 mg-17.5 mg-20 12.5 mg AZ 05/09/24 mg rectal kit ergocalciferol (vitamin D2) 200 PO 05/09/24 mcg/mL (8,000 unit/mL) oral drops (Calcidol) glycopyrrolate 1 mg tablet mg PO 05/09/24 lamotrigine 100 mg disintegrating mg PO 05/09/24 tablet nystatin 100,000 unit/gram topical topical DAILY 05/09/24 powder (Nystop) Previous Rx's ?Medication ?Instructions ?Recorded sulfamethoxazole 200 10 ml PO QID #200 mL 05/09/24 mg-trimethoprim 40 mg/5 mL oral suspension sulfamethoxazole 200 10 ml PO QID 5 days #200 mL 05/09/24 mg-trimethoprim 40 mg/5 mL oral suspension tamsulosin 0.4 mg capsule (Flomax) 0.4 mg PO DAILY #10 caps 05/09/24 tamsulosin 0.4 mg capsule (Flomax) 0.4 mg PO DAILY #10 caps 05/09/24 amoxicillin 250 mg-potassium 10 ml PO TID 7 days #250 mL 05/18/24 clavulanate 62.5 mg/5 mL oral suspension (Augmentin) Allergies Allergy/AdvReac Type Severity Reaction Status Date / Time No Known Drug Allergies Allergy Verified 05/09/24 11:54 Review of Systems Status of ROS: Reports: 10 or more systems reviewed and unremarkable except as noted in History and below [facility] Medical History Seizure disorder ?G40.909 - Epilepsy, unspecified, not intractable, without status epilepticus (ICD-10) Cerebral palsy ?G80.9 - Cerebral palsy, unspecified (ICD-10) Social History Smoking Status: Never smoker How often do you have a drink containing alcohol: never AUDIT-C Alcohol total score: 0 Non-prescribed substance use: denies use service: No Exam Narrative: Exam Narrative: I find him in room 6 he is in no apparent distress he is nonverbal but his parents to the communication for me he is smiling. Pupils equal round reactive to light there is no scleral icterus redness is TMs are normal his chest is good air entry bilaterally with only couple little wheezes on off, no signs of respiratory distress is heart sounds are normal his abdomen is soft, moves all extremities independently and well. Const: Vital Signs, click to edit/add: Vital Signs - 24 hr 05/18/24 00:26 Temperature 97.7 F Pulse Rate [Right Pulse Oximeter] 98 Respiratory Rate 16 Blood Pressure [Ri ght Upper Arm] 115/73 Pulse Oximetry 100 Oxygen Delivery Me thod Room Air Documenting provider has reviewed patient's vital signs: yes Course Course ED Course: I discussed with the parents his vital signs are all stable, he looks well, he does have episodes of aspiration which I noted on previous CT when he was even here for that. And probably does chronically aspirate. I think it would be reasonable place him on antibiotics or not and watch him closely. I will leave this up to them and I did put a prescription in to the pharmacy for them that they can lemon picker with the knee. We went over signs and symptoms of worsening and when he should be brought back, they were very comfortable with this plan. Vital Signs Vital signs: Initial Vital Signs Temperature 97.7 F 05/18/24 00:26 Temperature Source Temporal Artery Scan 05/18/24 00:26 Pulse Rate 98 05/18/24 00:26 Pulse Rhythm Regular 05/18/24 00:26 Respiratory Rate 16 05/18/24 00:26 Blood Pressure 115/73 05/18/24 00:26 Blood Pressure Mean 87 05/18/24 00:26 Blood Pressure Position Sitting 05/18/24 00:26 Pulse Oximetry 100 05/18/24 00:26 Oxygen Delivery Method Room Air 05/18/24 00:26 Vital Signs Temperature 97.7 F 05/18/24 00:26 Pulse Rate 98 05/18/24 00:26 Respiratory Rate 16 05/18/24 00:26 Blood Pressure 115/73 05/18/24 00:26 Pulse Oximetry 100 05/18/24 00:26 Oxygen Delivery Method Room Air 05/18/24 00:26 Temperature 97.7 F 05/18/24 00:26 Pulse Rate 98 05/18/24 00:26 Respiratory Rate 16 05/18/24 00:26 Blood Pressure 115/73 05/18/24 00:26 Pulse Oximetry 100 05/18/24 00:26 Oxygen Delivery Method Room Air 05/18/24 00:26 Medical Decision Making MDM Narrative Medical decision making narrative: Differential diagnosis include a viral upper respiratory illness, histoplasmosis, tuberculosis, pneumonia, COPD exacerbation, emphysema, strep throat illness, bronchitis, asthma, reactive airway disease, chronic cough, medication side effects, allergic rhinitis with postnasal drip, foreign body aspiration, aspiration pneumonia, bronchiolitis, and gastroesophageal reflux disease as well as multiple other considerations. Imaging Data Chest x-ray: Attestation: I have reviewed the pertinent imaging results. My impression: Chest x-ray was reviewed two view, from previous chest x-ray, they have put markings on the wrong side. There is a stimulator in his abdominal region noted. Slight prominence of the right hilar region is noted, could be some aspiration noted. Radiology read is pending Discharge Plan Discharge Clinical Impression: Cough, Aspiration into respiratory tract, Vomiting Patient Disposition: Home w/ Parent or Adult Condition: Stable Instructions: Aspiration Pneumonia (DC), Aspiration Precautions (ED) Additional Instructions: Home rest prescription for antibiotics sent to the pharmacy. If he develops a fever respiratory distress or his oxygen saturations get lower than I would suggest following up, and starting the antibiotic. Activity Level: Light activity Prescriptions: New amoxicillin-pot clavulanate [Augmentin] 250-62.5 mg/5 mL suspension for reconstitution 10 ml PO TID 7 Days Qty: 250 0RF No Action glycopyrrolate 1 mg tablet PO acetaminophen 650 mg suppository AZ bisacodyl 10 mg suppository 0 mg AZ nystatin [Nystop] 100,000 unit/gram powder topical DAILY ergocalciferol (vitamin D2) [Calcidol] 200 mcg/mL (8,000 unit/mL) drops PO diazepam 12.5-15-17.5-20 mg kit 12.5 mg AZ lamotrigine 100 mg tablet,disintegrating PO sulfamethoxazole-trimethoprim 200-40 mg/5 mL suspension 10 ml PO QID Qty: 200 0RF tamsulosin [Flomax] 0.4 mg capsule 0.4 mg PO DAILY Qty: 10 3RF sulfamethoxazole-trimethoprim 200-40 mg/5 mL suspension 10 ml PO QID 5 Days Qty: 200 0RF tamsulosin [Flomax] 0.4 mg capsule 0.4 mg PO DAILY Qty: 10 0RF Follow Up/Referrals: Oral Alexandra MD [Primary Care Provider] - Stand Alone Forms: [facility]
== END 2024-05-18 01:27 | disposition home or self-care (01) ==
PROVIDERS: Emergency Provider Family Medicine; PCP Family Medicine
DX: T17.818A Gastric contents in other parts of respiratory tract causing other injury, initial encounter (principal)
CPT/HCPCS: 71046; 99284

== ENCOUNTER 2025-02-18 08:19 | Emergency (ER) | payer OTHER, SELFPAY ==
--- OUTSIDE RECORDS SUMMARY | 2025-02-18 08:20 | XMS_ITS | Patient Health Record ---
Author Organization [facility] Address [address] [facility] [address] [place], [place] [id number] Care Team Providers Care Meter/Relay Craftsman Name Role Phone Lenard CLINE, [facility] [phone] Reason For Referral No Information Plan Of Treatment No Information Insurance Providers Payer Name Payer Address Payer Phone Subscriber Number Group Number Insured Name Patient Relationship to Insured Coverage Start Date Coverage End Date [facility] [address] [address] [place] [address] [id number] Radha Jacob Natural Child - Insured has Financial Responsibility [facility] [address] [address] [place] [address] [phone] [id number] Wilmer Jacob Self - patient is the insured
--- OUTSIDE RECORDS SUMMARY | 2025-02-18 08:20 | XMS_ITS | Clinical Summary ---
Author Organization [email or web address] Address [address] [place] [address] Care Team Providers Care Product Design Manager Name Role Phone Oral Alexandra MD Primary Care Provider Allergies No known active allergies Medications Diazepam (DIASTAT ACUDIAL) 12.5-15-17.5-20 mg Kit Insert rectally. Prn for seizures that last over 3 minutes 0 06/14/19 12 Active lamoTRIgine (LAMICTAL) 100 mg tabletIndication s:Seizure disorder (HC) Take 3 tablets in the AM and 2.5 in the PM 0 05/26/20 18 Active docusate (Enemeez) 283 mg/5 mL enem enemaIndications :Chronic constipation INSERT 1 ENEMA RECTALLY WEEKLY 150 mL 10/30/19 23 Active Ostomy Supplies (Skin Prep Wipes) miscIndications: Urinary incontinence, unspecified type As directed. [employer] Skin-prep Protective Dressing Wipes for condom cath. 3 Each 3 10/31/19 23 Active ergocalciferol, 8,000 units/ml, (VITAMIN D2) 200 mcg/mL (8,000 unit/mL) dropsIndications :Vitamin D deficiency TAKE 7.5 MLS BY MOUTH ONCE MONTHLY 60 mL 1 06/05/19 24 Active acetaminophen 650 mg suppositoryIndic ations:Fever, unspecified fever cause Insert 1 Suppository (650 mg) rectally every 6 hours if needed (fever). Max acetaminophen dose: 4000mg in 24 hrs. 30 Suppository 3 09/25/19 25 Active bisacodyL 10 mg suppositoryIndic ations:Chronic constipation INSERT ONE SUPPOSITORY RECTALLY 6 DAYS A WEEK 78 Suppository 3 09/25/19 25 Active nystatin powder (Nystop) powderIndication s:Tinea cruris APPLY TOPICALLY TO GROIN DAILY 60 g 5 09/25/19 25 Active Urinary Bag (Urinary Leg Bag) miscIndications: Urinary incontinence, unspecified type As directed. 12 Each 3 11/04/19 25 Active External Catheter, Male miscIndications: Urinary incontinence, unspecified type As directed. 100 Each 11/04/19 25 Active Diaper,Brief, Adult,Disposable Indications:Urin keena incontinence, unspecified type For home use. 96 Each 11/04/19 25 Active disposable glovesIndication s:Urinary incontinence, unspecified type For home use. 50 Each 11/04/19 25 Active durable medical equipment (DME)Indications :Urinary incontinence, unspecified type Chux 90 Each 11/04/19 25 Active glycopyrrolate (ROBINUL) 1 mg tabletIndication s:CP (cerebral palsy), spastic (HC) TAKE 1/2 TABLET(0.5 MG) BY MOUTH EVERY MORNING 45 Tablet 2 12/10/19 25 Active Active Problems Problem Noted Date Diagnosed Date Congenital quadriplegia 01/13/2007 Pneumonia Overview (12/05/2010): high risk for aspiration Seizure disorder Resolved Problems Problem Noted Date Diagnosed Date Resolved Date HIV positive 12/26/2022 10/01/2023 Overview (12/26/2022): Screening positive for HIV 1 10/2022 CEREBRAL PALSY QUADRIPLEGIC 01/13/2007 12/05/2010 Encounters Date Type Department Care Team Description 12/07/2024 Refill [facility] [address] [place] [address] Oral Alexandra MD Refill Request (Glycopyrrolate) from Last 3 Months Immunizations Immunization Administration Dates Next Due AMB Influenza, IIV3 (Age >=3 years)(Flu Clinic Only) 02/14/2012,04/21/2008 AMB Influenza, IIV4 PF (=>6 mos Flulaval,Fluzone Fluarix)(Flu Clinic Only) 03/07/2020,04/08/2019,02/08/2017 COVID-19 vaccine (Robert-J& J) PF, MDV 08/06/2020 DT (Age < 7 years) 09/04/1993, 3,1992,1991 HIB HbOC (HibTITER) 05/15/1993,1992,1991 Hepatitis A (Adult) 07/16/2019,05/26/2018 Hepatitis B (Peds) 1992,1992, 992 INFLUENZA, IIV3 PF (AGE >= 6 MO) 02/27/2024 Influenza A (H1N1), Inactivated 03/23/2009 Influenza Virus, Unspecified 04/05/2022,02/17/20 10 Influenza, IIV3 (Age 6-35 mos) 02/16/2010,2005 Influenza, IIV3 (Age >=3 years) 02/13/20 13,04/15/2007,03/13/2004,2002,04/29/2002 Influenza, IIV4 03/04/2023, 2,03/05/2021,2017,06/26/2016,03/30/2015 MMR 12/22/2004,05/15/1993 Oral Polio Vaccine 09/04/1993,1992, 992 Pneumococcal Poly,23-Valent (Pneumovax) 07/16/2019 Pneumococcal conj 13-Valent (Prevnar 13) 05/26/2018 Td (Age >=7 Years) 12/22/2004 Td, Preservative Free (age > = 7 Years) 03/30/2015 Tdap 02/21/2017 Tuberculin (PPD) 12/08/2012 Varicella Vaccine 04/15/2007 Family History Medical History Relation Name Comments Good Health Brother 2 Félix Jacob Good Health Father Douglas Jacob Liver disease Father Douglas Jacob NAFLD Diabetes Maternal Grandmother Altagracia Janae Good Health Mother Brianna Jacob Anesthesia Problem Neg. Cancer-colon No Family History Cancer-prostate No Family History Relation Name Status Comments Brother 1 Alive Brother 2 Félix Jacob Father Douglas Jacob Alive Maternal Grandmother Altagracia Cardoso Mother Brianna Jacob Alive Neg. Social History Tobacco Use Types Packs/Day Years Used Date Smoking Tobacco: Never Smokeless Tobacco: Never Tobacco Cessation:Counseling Given: No Alcohol Use Standard Drinks/Week Comments No 0 (1 standard drink = 0.6 oz pur e alcohol) PHQ-2 Answer Date Recorded PHQ-2 Score 0 07/28/2018 Social Connections Answer Date Recorded Do you often feel lonely or isolated from those around you? 0 10/01/2023 Financial Resource Strain Answer Date R ecorded Difficulty of Paying Living Expenses 3 10/01/2023 Difficulty of Paying Living Expenses Not on file 10/01/2023 Food Insecurity Answer Date Recorded Do you worry your food will run out before you are able to buy more? 1 10/01/2023 Transportation Needs Answer Date Record ed Does lack of transportation keep you from medica l appointments? 1 10/01/2023 Does lack of transportation keep you from work, meetings or getting things that you need? 1 10/01/2023 Housing Stability Answer Date Recorded What is your housing situation today? 1 10/01/2023 Utilities Answer Date Recorded Do you have trouble paying f or utilities (for example, heat, electricity, water, phone)? 1 10/01/2023 Sex and Gender Information Value Date Recorded Sex Assigned at Not on file Legal Sex Male 6:15 AM GENERAL MANAGER Gender Identity Not on file Sexual Orientation Not on file Obstetrics History Last Filed Vital Signs Vital Sign Reading Time Taken Comments Blood Pressure 106/67 09/24/2024 2:35 PM CDT Pulse 105 09/24/2024 2:35 PM CDT Temperature 37.6 C (99.7 F) 12/26/2022 9:56 AM CDT Respiratory Rate 18 12/26/2022 9:56 AM CDT Oxygen Saturation 91% 09/24/2024 2:3 5 PM CDT Inhaled Oxygen Concentration - - Weight 46.4 kg (102 lb 5 oz) 05/26/2018 4:41 PM GENERAL MANAGER taken at [facility] Height 160 cm (5' 3) 05/26/2018 4:41 PM GENERAL MANAGER Taken at [facility] Body Mass Index 18.12 05/26/2018 4:41 PM GENERAL MANAGER Plan of Treatment Health Maintenance Due Date Last Done Comments HPV series for age 9-45 (1 - 3-dose SCDM series) 01/18/2019 BMI (ht and wt on same day) for age 18+ 05/26/2019 05/26/2018 Depression screening for age 12+ 05/26/2019 05/26/2018, 06/26/2016 Influenza Vaccine (#1) 2025 , 03/04/2023, 04/05/2022, Additional history exists Tetanus booster 02/21/2027 02/21/2017, 08/2014, 12/22/2004 RSV vaccine for adults or (1 - 1-dose 75+ series) 01/18/2067 Hepatitis B series for 19+ Completed 08/31, 1992, 1992 Pneumococcal series for age 6-49 Aged Out 07/16/2019, 05/26/2018 No longer eligibl e based on patient's age to complete this topic Hepatitis C screening for age 18-79 Completed 10/29/2022 HIV for age 15-65 Completed 12/26/2022, , 10/29/2022 COVID-19 vaccine series Completed 02/27/20 24, 03/04/2023, 04/09/2022, Additional history exists Procedures Procedure Name Priority Date/Time Associated Diagnosis Comments HIV-1 RNA QUANT Routine 12/26/2022 10:57 AM CDT Abnormal laboratory test LC HCV ANTIBODY RFX TO QUANT PCR Routine 10/29/2022 3:19 PM CDT Need for hepatitis C screening test from Last 3 Months or Most Recently Relevant to Health Maintenance Results * HIV-1 RNA QUANT (12/26/2022 10:57 AM CDT) HIV-1 RNA QUANT HIV-1 RNA not detected HIV-1 RNA not detected copies/mL 01/04/2023 9:45 AM CDT [facility] Blood BLOOD SPECIMEN / Unknown Butterfly / Unknown 12/26/2022 10:57 AM CDT 12/26/2022 10:58 AM CDT Narrative [facility] - 01/04/2023 9:45 AM CDT Method: [place] HIV-1 Test us Oscar Ziegler MD SEND OUTS Final Re sult [facility] [address] [place] [address], * LC HCV ANTIBODY RFX TO QUANT PCR (10/29/2022 3:19 PM CDT) [facility] HCV Ab Non Reactive Non Reactive 11/01/2022 2:08 PM CDT [facility] Blood BLOOD SPECIMEN / Unknown Venipuncture / Unknown 10/29/2022 3:19 PM CDT 10/29/2022 3:[address] [facility] - 11/01/2022 2:08 PM CDT Performed at: [address] [place] [id number] Steel Plate Printer: Sukh Terry MD, Phone: [phone] us Oral Alexandra MD LABORATORY Final Result [facility] [address] [place] [id number], from Last 3 Months or Most Recently Relevant to Health Maintenance Insurance [employer] Care Teams Product Design Manager Relationship Specialty Start Date End Date Oral Alexandra MD [address] [place] [address] PCP - General Family Practice 05/21/11
--- OUTSIDE RECORDS SUMMARY | 2025-02-18 08:21 | XMS_ITS | Clinical Summary ---
[facility] Address [id number], [place] [address] Care Team Providers Care Beam Doffer Name Role Phone Unavailable Primary Care Provider Unavailabl e Source Comments You are receiving this document as you are listed as the primary care provider,follow-up provider, or the patient has been referred to you for consultation.This is in compliance with the Medicare and[facility] Cent[facility] EHR Incentive Program,which states Providers who transition their patient to another setting of careor provider of care or refers their patient to another provider of care shouldprovide summary care record for each transition of care or referral. [facility] Allergies No known active allergies Medications bisacodyl (DULCOLAX) 10 MG suppositoryIndicati ons:Hyperparathyroi dism (HRC),Cerebral palsy, unspecified type (HRC),Seizure (HRC),FH: hemochromatosis Insert 10 mg rectally five times a week. 8 Active diazePAM (DIASTAT) 20 MG gelIndications:Hype rparathyroidism (HRC),Cerebral palsy, unspecified type (HRC),Seizure (HRC),FH: hemochromatosis Insert 12.5 rectally. Prn for seizures that last over 3 minutes 2 Active glycopyrrolate (ROBINUL) 1 MG tabletIndications:H yperparathyroidism (HRC),Cerebral palsy, unspecified type (HRC),Seizure (HRC),FH: hemochromatosis Take 0.5 mg by mouth daily. 7 Active LamoTRIgine (LAMICTAL) 100 MGIndications:Hyper parathyroidism (HRC),Cerebral palsy, unspecified type (HRC),Seizure (HRC),FH: hemochromatosis Take 300 mg in the AM and 250 mg in the PM. 8 8 Active nystatin (MYCOSTATIN) 244672 UNIT/GM powderIndications:H yperparathyroidism (HRC),Cerebral palsy, unspecified type (HRC),Seizure (HRC),FH: hemochromatosis APPLY TO THE GROIN AREA DAILY 7 Active docusate sodium (ENEMEEZ) 283 MG enemaIndications:Hy perparathyroidism (HRC),Cerebral palsy, unspecified type (HRC),Seizure (HRC),FH: hemochromatosis Insert 283 mg rectally as needed. 7 Active ergocalciferol (DRISDOL) 8000 UNIT/ML dropsIndications:Hy perparathyroidism (HRC),Cerebral palsy, unspecified type (HRC),Seizure (HRC),FH: hemochromatosis Take 4 mLs every 2 weeks 40 mL 4 9 Active Active Problems Problem Noted Date Diagnosed Date Hyperparathyroidism 03/18/2018 Cerebral palsy 03/18/2018 Seizure 03/18/2018 Social History Tobacco Use Types Packs/Day Years Used Date Smoking Tobacco: Never Smokeless Tobacco: Never Alcohol Use Standard Drinks/Week Comments No 0 (1 standard drink = 0.6 oz pur e alcohol) Sex and Gender Information Value Date Recorded Sex Assigned at Not on file Legal Sex Male 6:59 AM CDT Gender Identity Not on file Sexual Orientation Not on file Last Filed Vital Signs Vital Sign Reading Time Taken Comments Blood Pressure 124/75 09/16/2018 8:57 AM CDT Pulse 105 09/16/2018 8:57 AM CDT Temperature - - Respiratory Rate 90 04/08/2018 12:23 PM FILTER PRESS SUPERVISOR Oxygen Saturation 97% 04/08/2018 12:23 PM FILTER PRESS SUPERVISOR Inhaled Oxygen Concentration - - Weight - - Height - - Body Mass Index - - Plan of Treatment Health Maintenance Due Date Last Done Comments Hep C Screening (Preventive Services) 1992 IPV (Polio) Vaccine (4 of 4 - 4-dose series) 1996 09/04/1993, 1992, 1992 HIV Screening (Preventive Services) 2008 Adult Preventive Visit 01/18/2010 HepB Vaccine (1) 01/18/2011 HPV Vaccine (1 - 3-dose SCDM series) 01/18/2019 COVID-19 Vaccine (2 - season) 2025 08/06/2020 Influenza Vaccine (#1) 2025 , 04/08/2019, 02/10/2018, Additional history exists DTaP/Tdap/Td Vaccine (7 - Tdap) 02/21/2027 02/21/2017, 03/30/2015, 12/22/2004, Additional history exists Zoster/Shingles Vaccine (1 of 2) 01/18/2042 Hib Vaccine Completed 05/15/1993, 06/27, 1992 HepA Vaccine Aged Out 07/16/2019, 05/26/2018 No lo nger eligible based on patient's age to complete this topic Pneumococcal Vaccine Aged Out 07/16/2019, 05/26/20 18 No longer eligible based on patient's age to complete this topic MCV4 Vaccine Aged Out No longer eligi ble based on patient's age to complete this topic Meningococcal B Vaccine Aged Out No l onger eligible based on patient's age to complete this topic [facility] Care Teams Beam Doffer Relationship Specialty Start Date End Date PCP - General 12/25/99
[2025-02-18 08:35] VITALS: BP 95/69; PULSE 110; RESP 18; TEMP 36.6; O2SAT 94
--- NOTE | 2025-02-18 08:43 | CRLHL7_ITS ---
For Patients: As a result of the Century Cures Act, medical imaging exams and procedure reports are released immediately into your electronic medical record. You may view this report before your referring provider. If you have questions, please contact your health care provider. INDICATION: Chest pain. TECHNIQUE: Chest 2 views. COMPARISON: Chest radiograph 05/18/2024 FINDINGS: Suboptimal positioning with hand overlying the costophrenic angle on the AP view. Cardiovascular and mediastinum: Heart size is normal. Unremarkable mediastinum. Lungs and pleural spaces: Lungs are clear. No pneumothorax or pleural effusion. Bones and soft tissues: No significant findings. IMPRESSION: No acute findings. Dictated by Aminah Moreno MD @ 02/18/2025 9:16:41 AM (Electronically Signed)
--- NOTE | 2025-02-18 09:10 | ED_ITS ---
HPI - General Adult General Time Seen by Provider: 09:10 Date Seen: 02/18/25 Chief complaint: Cough Stated complaint: Shortness of breath, cough Time Seen by Provider: 02/18/25 08:58 Source: patient and family Mode of arrival: wheelchair History of Present Illness HPI narrative: Wilmer is a 35-year-old male with previous cerebral palsy, seizure disorder, recurrent aspiration pneumonia presents emergency department via private current family with a cough. According to family patient developed a productive green sputum cough that started last night, he was eating breakfast this morning and cough got progressively worse, no choking episode, but he had not become more short of breath that worsened when they got him in the car. No fevers or chills, no nausea vomiting, patient has had aspiration pneumonia in the past. Patient denies any pain at this time. Patient had been doing well prior to yesterday, no sick contacts. No other concerns. Patient has no history of any asthma, he did receive nebulizers in the past about 20 years ago when he was at [facility] [employer] does not have a prescription for these medications. Related Data Home Medications ?Medication ?Instructions ?Recorded ?Confirmed acetaminophen 650 mg rectal mg MI 05/09/24 suppository bisacodyl 10 mg rectal suppository 0 mg MI 05/09/24 diazepam 12.5 mg-15 mg-17.5 mg-20 12.5 mg MI 05/09/24 mg rectal kit ergocalciferol (vitamin D2) 200 PO 05/09/24 mcg/mL (8,000 unit/mL) oral drops (Calcidol) glycopyrrolate 1 mg tablet mg PO 05/09/24 lamotrigine 100 mg disintegrating mg PO 05/09/24 tablet nystatin 100,000 unit/gram topical topical DAILY 05/09 powder (Nystop) Previous Rx's ?Medication ?Instructions ?Recorded sulfamethoxazole 200 10 ml PO QID #200 mL 4 mg-trimethoprim 40 mg/5 mL oral suspension sulfamethoxazole 200 10 ml PO QID 5 days #200 mL 05/09/24 mg-trimethoprim 40 mg/5 mL oral suspension tamsulosin 0.4 mg capsule (Flomax) 0.4 mg PO DAILY #10 caps 05/09/24 tamsulosin 0.4 mg capsule (Flomax) 0.4 mg PO DAILY #10 caps 05/09/24 amoxicillin 250 mg-potassium 10 ml PO TID 7 days #250 mL 05/18/24 clavulanate 62.5 mg/5 mL oral suspension (Augmentin) amoxicillin 250 mg-potassium 10 ml PO TID 7 days #210 mL 02/18/25 clavulanate 62.5 mg/5 mL oral suspension (Augmentin) Allergies Allergy/AdvReac Type Severity Reaction Status Date / Time No Known Drug Allergies Allergy Verified 02/18/25 08:39 Review of Systems Status of ROS: Reports: 10 or more systems reviewed and unremarkable except as noted in History and below [facility] Medical History Seizure disorder ?G40.909 - Epilepsy, unspecified, not intractable, without status epilepticus (ICD-10) Cerebral palsy ?G80.9 - Cerebral palsy, unspecified (ICD-10) Social History Smoking Status: Never smoker How often do you have a drink containing alcohol: never AUDIT-C Alcohol total score: 0 Non-prescribed substance use: denies use service: No Exam Narrative: Exam Narrative: General: No obvious distress sitting comfortably in his wheelchair HEENT: Pupils equal round reactive to light, extraocular muscles intact, oropharynx clear and moist Lungs: Clear to auscultation bilaterally Heart mild sinus tachycardia Abdomen; soft nontender: Neuro: Alert, cerebral palsy baseline Muscle skeletal: Moving upper lower extremities no difficulty Const: Vital Signs, click to edit/add: Vital Signs - 24 hr 02/18/25 08:35 Temperature 97.9 F Pulse Rate [Right Pulse Oximeter] 110 H Respiratory Rate 18 Blood Pressure [Ri ght Upper Arm] 95/69 Pulse Oximetry 94 Oxygen Delivery Me thod Room Air Course Course ED Course: 9:15 AM; aidet performed. Vitals are normal at this time, no hypoxia or fever, workup will include XR chest PA and lateral, rule out aspiration, CBC, metabolic panel, COVID influenza RSV nasopharyngeal swab. Suspect bronchitis, verses aspiration pneumonia, postnasal drip, sinusitis, asthma, COPD, medication side effects as well as all etiologies. Reevaluation(s) Time of Reevaluation #1: 10:10 Reevaluation #1: CBC showed no leukocytosis, COVID, influenza, and RSV nasopharyngeal swab negative, Xr chest PA and lateral showed no acute cardiopulmonary process, patient did well during stay in emerged department, based on his history of aspiration pneumonia, discussed treating with amoxicillin-clavulante 250-62.5 mg, 10 ml t.i.d. over the next 7 days, similar to previous, he will follow up with his primary care provider over the next week as needed, return if worsening symptoms. Vital Signs Vital signs: Initial Vital Signs Temperature 97.9 F 02/18/25 08:35 Temperature Source Temporal Artery Scan 02/18/25 08:35 Pulse Rate 110 H 02/18/25 08:35 Pulse Rhythm Regular 02/18/25 08:35 Pulse Strength 3+ Normal 02/18/25 08:35 Respiratory Rate 18 02/18/25 08:35 Blood Pressure 95/69 02/18/25 08:35 Blood Pressure Mean 77 02/18/25 08:35 Blood Pressure Position Sitting 02/18/25 08:35 Pulse Oximetry 94 02/18/25 08:35 Oxygen Delivery Method Room Air 02/18/25 08:35 Vital Signs Temperature 97.9 F 02/18/25 08:35 Pulse Rate 110 H 02/18/25 08:35 Respiratory Rate 18 02/18/25 08:35 Blood Pressure 95/69 02/18/25 08:35 Pulse Oximetry 94 02/18/25 08:35 Oxygen Delivery Method Room Air 02/18/25 08:35 Temperature 97.9 F 02/18/25 08:35 Pulse Rate 110 H 02/18/25 08:35 Respiratory Rate 18 02/18/25 08:35 Blood Pressure 95/69 02/18/25 08:35 Pulse Oximetry 94 02/18/25 08:35 Oxygen Delivery Method Room Air 02/18/25 08:35 Medical Decision Making Lab Data Labs: Lab Results 02/18/25 02/18/25 Range/Units 09:05 09:13 WBC 6.45 (4.50-11.00) K/uL RBC 5.28 (4.30-5.90) m/uL Hgb 15.9 (13.5-17.5) gm/dL Hct 47.5 (37.0-53.0) % MCV 90 (80-100) fL MCH 30 (26-34) pg MCHC 34 (32-36) gm/dL RDW Coeff of Bobo 12.6 (11.5-15.5) % Plt Count 233 (140-440) K/uL Neut % (Auto) 83.8 H (42.0-72.0) % Lymph % (Auto) 10.4 L (20-44) % [place] % (Auto) 3.1 (0.0-11.0) % Eos % (Auto) 2.0 (0.0-7.0) % Baso % (Auto) 0.5 (0.0-3.0) % Neut # (Auto) 5.40 (1.7-7.0) K/uL Lymph # (Auto) 0.70 L (0.90-2.90) K/uL [place] # (Auto) 0.20 (0.00-0.90) K/UL Eos # (Auto) 0.13 (0.00-0.50) K/uL Baso # (Auto) 0.03 (0.00-0.30) K/uL Abs Immat Gran (auto) 0.01 (0.00-0.30) K/uL Imm/Tot Granulo (auto) 0.2 % Sodium 140 (135-149) mmol/L Potassium 4.3 (3.6-5.1) mmol/L Chloride 101 (96-114) mmol/L Carbon Dioxide 29 (20-32) mmol/L Anion Gap 10 (7-15) mEq/L BUN 11 (5-24) mg/dL Creatinine 0.9 (0.5-1.5) mg/dL Estimated GFR 116 ml/min Glucose 90 (60-115) mg/dL Calcium 9.6 (8.4-10.6) mg/dL SARS-CoV-2 (PCR) Negative SARS-CoV-2 (Negative) Influenza Type A (PCR) Negative PCR FLU A (Negative) Influenza Type B (PCR) Negative PCR FLU B (Negative) RSV (PCR) Negative PCR RSV (Negative) Discharge Plan Discharge Clinical Impression: Cough, Shortness of breath, History of aspiration pneumonia Patient Disposition: Home, Self-Care Condition: Improved Instructions: Acute Cough (ED), Shortness of Breath (ED) Additional Instructions: To take Augmentin 10 ml three times daily for the next 7 days. To follow up with primary care provider as needed in the next week. Return if worsening symptoms. Activity Level: No Restrictions Prescriptions: New amoxicillin-pot clavulanate [Augmentin] 250-62.5 mg/5 mL suspension for reconstitution 10 ml PO TID 7 Days Qty: 210 0RF No Action glycopyrrolate 1 mg tablet PO acetaminophen 650 mg suppository MI bisacodyl 10 mg suppository 0 mg MI nystatin [Nystop] 100,000 unit/gram powder topical DAILY ergocalciferol (vitamin D2) [Calcidol] 200 mcg/mL (8,000 unit/mL) drops PO diazepam 12.5-15-17.5-20 mg kit 12.5 mg MI lamotrigine 100 mg tablet,disintegrating PO sulfamethoxazole-trimethoprim 200-40 mg/5 mL suspension 10 ml PO QID Qty: 200 0RF tamsulosin [Flomax] 0.4 mg capsule 0.4 mg PO DAILY Qty: 10 3RF sulfamethoxazole-trimethoprim 200-40 mg/5 mL suspension 10 ml PO QID 5 Days Qty: 200 0RF tamsulosin [Flomax] 0.4 mg capsule 0.4 mg PO DAILY Qty: 10 0RF amoxicillin-pot clavulanate [Augmentin] 250-62.5 mg/5 mL suspension for reconstitution 10 ml PO TID 7 Days Qty: 250 0RF Follow Up/Referrals: Oral Alexandra MD [Primary Care Provider, Family Practice] Stand Alone [facility]: [facility] Inst[facility]
[2025-02-18 09:20] LABS: Hematocrit* 47.5 % (37.0-53.0); Hemoglobin* 15.9 gm/dL (13.5-17.5); Immature Granulocytes Abs Auto 0.01 K/uL (0.00-0.30); Immature Granulocytes Pct Auto 0.2 %; Mean Corpuscular HGB Conc 34 gm/dL (32-36); Mean Corpuscular Hemoglobin 30 pg (26-34); Mean Corpuscular Volume 90 fL (80-100); RDW Coefficient of Variation % 12.6 % (11.5-15.5); Red Blood Count* 5.28 m/uL (4.30-5.90); White Blood Count* 6.45 K/uL (4.50-11.00)
--- OUTSIDE RECORDS SUMMARY | 2025-02-18 09:20 | XMS_ITS | CCD ---
Author Organization Unknown Care Team Providers Care Rigging Supervisor Name Role Phone Marketing Compliance Manager, [place] Primary Care Provider Unava ilable Unavailable Chronic Care Management Unavaila ble Summary Purpose DataExchange Insurance Providers Payer name Policy type / Coverage type Covered green party ID Effective Begin Date Effective End Date [employer] ([facility]) Commercial Insurance [id number] Unknown Unknown Family History Family History data not found Medication Administered No Medication Administered data Reason For Visit No Reason For Visit data
[2025-02-18 09:22] LABS: Lymphocytes Absolute Auto 0.70 K/uL (0.90-2.90)
[2025-02-18 09:23] LABS: Slide Review Reflex No
[2025-02-18 09:36] LABS: Chloride* 101 mmol/L (96-114); Potassium* 4.3 mmol/L (3.6-5.1); Sodium* 140 mmol/L (135-149)
[2025-02-18 09:39] LABS: Blood Urea Nitrogen* 11 mg/dL (5-24); Creatinine* 0.9 mg/dL (0.5-1.5); Estimated Glomerular Filt Rate 116 ml/min
[2025-02-18 09:40] LABS: Anion Gap 10 mEq/L (7-15); Calcium* 9.6 mg/dL (8.4-10.6); Carbon Dioxide* 29 mmol/L (20-32); Glucose* 90 mg/dL (60-115)
[2025-02-18 09:51] LABS: PCR FLU A Negative PCR FLU A (Negative); PCR FLU B Negative PCR FLU B (Negative); PCR RSV Negative PCR RSV (Negative); SARS PCR* Negative SARS-CoV-2 (Negative)
--- OUTSIDE RECORDS SUMMARY | 2025-02-18 10:14 | XMS_ITS | CCD ---
Author Organization Unknown Care Team Providers Care Motion Picture Critic Name Role Phone Lens Shaper Grinder, [place] Primary Care Provider Unava ilable Unavailable Chronic Care Management Unavaila ble Summary Purpose DataExchange Insurance Providers Payer name Policy type / Coverage type Covered constitution party ID Effective Begin Date Effective End Date Medica ([facility]) Commercial Insurance [id number] Unknown Unknown Family History Family History data not found Medication Administered No Medication Administered data Reason For Visit No Reason For Visit data
--- OUTSIDE RECORDS SUMMARY | 2025-02-18 10:14 | XMS_ITS | CCD ---
Author Organization Unknown Care Team Providers Care Livestock Auctioneer Name Role Phone Babysitter, [place] Primary Care Provider Unava ilable Unavailable Chronic Care Management Unavaila ble Summary Purpose DataExchange Insurance Providers Payer name Policy type / Coverage type Covered alliance party ID Effective Begin Date Effective End Date Med[employer] ([facility]) Commercial Insurance [id number] Unknown Unknown Family History Family History data not found Medication Administered No Medication Administered data Reason For Visit No Reason For Visit data
== END 2025-02-18 10:20 | disposition home or self-care (01) ==
PROVIDERS: Emergency Provider Student in an Organized Health Care Education/Training Program; PCP Family Medicine
DX: R05.1 Acute cough (principal); R06.02 Shortness of breath
CPT/HCPCS: 36415; 71046; 80048; 85025; 87631; 99283